=== PATIENT | female | born 1950 | race Caucasian/White ===

== ENCOUNTER 2025-01-09 18:19 | Emergency (ER) | payer MEDICARE, OTHER, SELFPAY ==
[2025-01-09 18:21] VITALS: BP 167/91
[2025-01-09 18:41] LABS: Hematocrit 39.5 % (37.0-47.0); Hemoglobin 13.8 g/dL (12.0-16.0); Mean Corp Hgb Conc. 34.9 g/dL (33.0-37.0); Mean Corpuscular Volume 89.8 fL (81.0-99.0); Nucleated Red Blood Cells % 0 %; Platelet Count 388 10^3/uL (130-400); Red Cell Dist. Width 13.0 % (11.5-14.5)
[2025-01-09 19:00] LABS: ALT (SGPT) 15 U/L (0-35); AST (SGOT) 20 U/L (14-36); Albumin 4.5 g/dl (3.5-5.0); Alkaline Phosphatase 65 U/L (38-126); Blood Urea Nitrogen 18 mg/dl (7-17); Calcium 9.8 mg/dl (8.4-10.2); Carbon Dioxide 20 mmol/L (22-30); Chloride 106 mmol/L (98-107); Glucose 104 mg/dl (70-99); Potassium 3.8 mmol/L (3.5-5.1); Sodium 137 mmol/L (135-145); Total Protein 6.8 g/dl (6.3-8.2); eGFR > 60.00
[2025-01-09 19:01] LABS: Troponin I < 0.012 ng/ml
--- NOTE | 2025-01-09 19:50 | ED.GENMED ---
History of Present Illness
General
Chief Complaint: Breathing Problem
Source: patient and spouse
Time Seen by Provider: 01/09/25 19:43
History of Present Illness
History of Present Illness:
This patient is a 74-year-old female presents emergency department with complaints of trouble catching her breath on and off for the last few days. She says she thinks it may be related to anxiety but wanted to be sure to get it checked out. She
went to an urgent care and was referred to the emergency department. She denies chest pain or pressure, a pleuritic component to her breathlessness, leg swelling, recent mobilization, recent trauma, recent surgery, smoking history, or other DVT
risk factors. She denies back pain neck pain, headache, dizziness, fever, chills, cough, sore throat, rhinorrhea, abdominal pain, or other complaints. She currently does not feel short of breath, and the last time she did feel this way was earlier
today.
Past History
Past History
ED Past Medical History: HTN, Hypothyroidism and Other (IBS)
ED Past Surgical History: Gynecological
Social History
Tobacco: Non-smoker
Alcohol: Occasional
Drug: None
Personal:
Living: with family
Phy Exam
Physical Exam
Physical Exam:
GENERAL: Alert , in no apparent distress
EYE: pupils equal and reactive
NECK: Supple, no significant adenopathy.
ENT: o/p clr, mmm.
CARDIAC: Regular rate and rhythm .
LUNGS: Clear breath sounds bilaterally, no acute respiratory distress, no wheezes/rales/rhonchi
ABDOMEN: Soft, without focal tenderness, no r/g, no cvat
NEUROLOGICAL: Alert and oriented, no focal neuro deficits
SKIN: Warm and dry, skin intact.
MUSCULOSKELETAL: No edema, well perfused, negative Homans.
PSYCH: Normal and appropriate interaction.
Scores
Heart Failure Risk
Heart Failure Risk Score: Not Applicable
Course
Orders/Labs/Results
Orders:
Orders
01/09/25 18:25
Electrocardiogram (*1) Urgent
Reason for Study: Shortness of Breath
EKG- Treatment ONCE
CXR2 [CR Chest - 2 Views ] Urgent
Comment:
Reason For Exam: SOB
01/09/25 18:32
CMP [Comprehensive Metabolic Panel] Urgent
Complete Blood Count/With Diff Urgent
Troponin I Urgent
Abnormal Lab Results
01/09/25
18:32
MCH 31.4 H pg
(27.0-31.0)
Absolute Monos (auto) 0.8 H 10^3/uL
(0.1-0.6)
Carbon Dioxide 20 L mmol/L
(22-30)
BUN 18 H mg/dl
(7-17)
Glucose 104 H mg/dl
(70-99)
01/09/25 18:32
01/09/25 18:32
Vital Signs
Initial and Last Documented VS:
Initial Vital Signs
Temp Pulse Resp BP Pulse Ox
97.5 F 92 18 167/91 99
01/09/25 18:21 01/09/25 18:21 01/09/25 18:21 01/09/25 18:21 01/09/25 18:21
Last Documented Vital Signs
Temp Pulse Resp BP Pulse Ox
97.5 F 92 18 167/91 99
01/09/25 18:21 01/09/25 18:21 01/09/25 18:21 01/09/25 18:21 01/09/25 19:53
*Pulse Oximetry
SaO2: 99
Oxygen Mode of Delivery: Room air
Patient hypoxic: no
*Critical Care Note
Total Time (30-74mins, 75-104mins- exclusive of procedures): Not Applicable
Update Note
Update Note:
Patient presents to the Emergency Department with _shortness of breath
Number and Complexity of Problems Addressed at the Encounter
� Chronic conditions affecting care:
� Acute Exacerbation and/or Progression of Chronic Illness:
� Differential Diagnosis includes: But not limited to PE, pneumothorax, pneumonia, ACS, musculoskeletal etiology, anxiety, etc.
Amount and/or Complexity of Data to be Reviewed and Analyzed
� I performed an independent evaluation of and my interpretation is:
EKG: Read by me, normal sinus rhythm, normal rate, nonspecific T wave flattening, no acute ischemia
CT:
Xrays:cxr read by me nad
Laboratory Studies: Generally unremarkable, troponin within normal limits
Other:
� Review of other/old records reveals:
� Clinical information was obtained by an independent historian: who is bedside
� Prescriptions/Medications Considered but not given:
� Further testing considered but not performed:
Risk of Complications and/or Morbidity or Mortality of Patient Management
� Social determinants of health affecting care:
� Discussion with other providers (PCP, Hospitalists, Consultants, etc):
� Escalation of care including admission/observation vs risk of discharge considered: Patient remains awake alert in no respiratory distress here, normal pulse ox, does not appear breathless, no chest pain. Workup unremarkable
here discussed with her importance of follow-up and reasons return to the ER.
ED Attending Note
-
Portions of this chart may have been created with voice recognition software.� Occasional wrong word or��sound alike� substitutions may have occurred due to the inherent limitations of voice recognition software.
Discharge Plan
Departure
Patient Disposition: Home (Routine Discharge)
Date of Disposition: 01/09/25
Time of Disposition: 20:29
Patient with high blood pressure during this ER visit?: Yes
Condition: Good
Discharge Problem:
Dyspnea
Instructions: Shortness of Breath (Dyspnea) (DC), BLOOD PRESSURE
Referrals:
[facility],Prudencio D., MD [Active, Family Practice] - Next open appointment
UNKNOWN - PT DOES,NOT KNOW [Family Provider]
Activity Restrictions/Additional Instructions:
IF YOU DEVELOP DIZZINESS, FEVER, VOMITING, CHEST PAIN OR PRESSURE, PERSISTENT TROUBLE BREATHING, SWELLING, OR OTHER WORRISOME SIGNS, PLEASE RETURN TO THE ER IMMEDIATELY
Interventions
Interventions:
ED- Cardiac Assessment Last Done: 01/09/25 19:52
ED- Pulmonary Assessment Last Done: 01/09/25 19:52
Discharge Date and Time
Print Language: [place]
== END 2025-01-09 20:41 | disposition home or self-care (01) ==
LOC: EMR 18:19
PROVIDERS: EMERGENCY PHYSICIAN Emergency Medicine
DX: R06.00 Dyspnea, unspecified (principal); F41.9 Anxiety disorder, unspecified; I10 Essential (primary) hypertension; E03.9 Hypothyroidism, unspecified; K58.9 Irritable bowel syndrome, unspecified
CPT/HCPCS: 99283; 71046; 80053; 84484; 85025; 93005